=== PATIENT | female | born 1950 | race Caucasian/White ===

== ENCOUNTER 2019-06-19 09:35 | Emergency (ER) | payer MEDICARE, BC ==
[2019-06-19] MEDS ORDERED: ACETAMINOPHEN 500 MG TABLET PO ONE (10:02)
[2019-06-19] MEDS ORDERED: IPRATROPIUM/ALBUTEROL (0.5MG/3MG) NEB INH ONE (10:06)
[2019-06-19] MEDS ORDERED: IBUPROFEN 600 MG TABLET PO ONE (10:07)
--- NOTE | 2019-06-19 10:12 | Emergency Department Record ---
History of Present Illness - General Chief Complaint: Cough Stated Complaint: LEIGH ANN Time Seen by Provider: 06/19/19 09:49 Source: Patient Mode of Arrival: Ambulatory Limitations: No limitations - History of Present Illness Initial Comments: The patient is here due to a cough and congestion with mild SOB for one day. She felt worse this AM so she decided to come to the ER. The patient denies any CP, AP or back pain and she did not get a flu shot this year. MD Complaint: Cough, Fever, Nasal congestion, Rhinorrhea Onset/Timin -: Days(s) - Related Data Home Medications Medication Instructions Recorded Confirmed Last Taken Estrogen,Con/M-Progest Acet 1 tab PO DAILY 06/19/19 06/19/19 06/19/19 [Prempro 0.3 mg-1.5 mg Tablet] Levothyroxine Sodium [Synthroid] 150 mcg PO DAILY 06/19/19 06/19/19 06/19/19 Paroxetine HCl [Paxil] 10 mg PO DAILY 06/19/19 06/19/19 06/17/19 Rosuvastatin Calcium 20 mg PO DAILY 06/19/19 06/19/19 06/18/19 Tramadol HCl 50 mg PO ASDIR 06/19/19 06/19/19 Unknown Previous Rx's Medication Instructions Recorded Albuterol Sulfate [Proair Hfa] 2 puff IH QID PRN #1 inhaler 06/19/19 Oseltamivir Phosphate [Tamiflu] 75 mg PO BID #10 capsule 06/19/19 Allergies Allergy/AdvReac Type Severity Reaction Status Date / Time codeine Allergy SWELLING Verified 06/19/19 09:44 (GENERAL) Travel/Exposure Screening - Travel/Exposure Within Last 30 Days Have you traveled within the last 30 days?: No - Travel/Exposure Within Last Year Have you traveled outside the [place] in the last year?: No - Additonal Travel/Exposure Details Have you been exposed to anyone with a communicable illness?: No - Travel Symptoms Symptom Screening: None Review of Systems Constitutional: Reports: Chills, Fever, Malaise Eyes: Denies: Eye discharge ENT: Reports: Congestion Respiratory: Reports: Cough, Dyspnea. Denies: Hemoptysis Cardiovascular: Denies: Chest pain Endocrine: Reports: Fatigue Gastrointestinal: Denies: Nausea Genitourinary: Denies: Dysuria Musculoskeletal: Denies: Arthralgia Neurological: Denies: Abnormal gait Past Medical History - SOCIAL HISTORY Smoking Status: Never smoker Alcohol Use: None Drug Use: None - RESPIRATORY Hx Respiratory Disorders: No - CARDIOVASCULAR Hx Cardio Disorders: Yes Comment:: high cholesterol - NEURO Hx Neuro Disorders: No - GI Hx GI Disorders: No - Hx Genitourinary Disorders: No - ENDOCRINE Hx Endocrine Disorders: Yes Hx Thyroid Disease: Yes - MUSCULOSKELETAL Hx Musculoskeletal Disorders: No - PSYCH Hx Psych Problems: No - HEMATOLOGY/ONCOLOGY Hx Hematology/Oncology Disorders: No Family Medical History Any Significant Family History?: Yes Hx Alcohol Use: Brother/Sister Hx Cancer: Father, Brother/Sister, Grandparents Hx Heart Disease: Brother/Sister Physical Exam - General General Appearance: Alert, Oriented x3, Cooperative, No acute distress - Head Head exam: Atraumatic, Normocephalic, Normal inspection - Eye Eye exam: Normal appearance, PERRL - ENT Throat exam: Normal inspection. negative: Tonsillar erythema, Tonsillar exudate - Neck Neck exam: Normal inspection, Full ROM. negative: Tenderness - Respiratory Respiratory exam: Normal lung sounds bilaterally (upper lobes.), Decreased breath sounds (at the bases.). negative: Respiratory distress - Cardiovascular Cardiovascular Exam: Regular rate, Normal rhythm, Normal heart sounds - GI/Abdominal GI/Abdominal exam: Soft, Normal bowel sounds. negative: Tenderness - Extremities Extremities exam: Normal inspection, Full ROM, Normal capillary refill. negative: Tenderness - Neurological Neurological exam: Alert, Normal gait. negative: Abnormal gait, Motor sensory deficit - Psychiatric Psychiatric exam: negative: Anxious - Skin Skin exam: negative: Rash Course Vital Signs 06/19/19 09:54 Temperature 102.9 F H Pulse Rate 117 H Respiratory 20 Rate Blood Pressure 184/82 Pulse Ox 90 L - Reevaluation(s) Reevaluation #1: The patient is feeling much better at this time. Her temp is 99.5 at this time and she denies any SOB or LEIGH ANN. On recheck her RA biox is 93-94% with clear lungs. I did discuss the fact that her Influenza test was neg but I strongly feel it is a false neg due to the fact she has classic symptoms of the disease. Due to that I will place her on Tamiflu and will instruct her to return for any worsening symptoms. 06/19/19 11:57 Medical Decision Making - Data Complexity MDM Data: Labs Ordered and/or Reviewed, X-Ray Ordered and/or Reviewed - Lab Data Result diagrams: 06/19/19 10:00 06/19/19 10:00 - Radiology Data Radiology results: Report reviewed (CXR: Neg for any acute changes.) Disposition Disposition: Discharge Clinical Impression: Influenza Disposition: Home, Self-Care Condition: (2) Stable Instructions: Influenza (ED) Additional Instructions: Please alternate Tylenol with Motrin for fever and drink plenty of fluids. Please use the inhaller as directed and please see your family doctor in 2-3 days for recheck. Return to the ER for any worsening cough, high fever, or any trouble breathing or shortness of breath. Prescriptions: Albuterol Sulfate [Proair Hfa] 2 puff IH QID PRN #1 inhaler PRN Reason: Cough And Difficulty Breathing Oseltamivir Phosphate [Tamiflu] 75 mg PO BID #10 capsule Forms: Patient Portal Access Time of Disposition: 12:01 Quality - Quality Measures Quality Measures: N/A - Blood Pressure Screening View Details: Yes Does Patient Have Any of the Following: No Blood Pressure Classification: Normal BP Reading Systolic Measurement: 118 Diastolic Measurement: 67 Screening for High Blood Pressure: < Normal BP, F/U Not Required > [G8783]
[2019-06-19 10:18] LABS: ABSOLUTE NEUTROPHIL COUNT 6.71; HEMATOCRIT 35.7 % (35.0-47.0); HEMOGLOBIN 11.3 gm/dl (11.6-16.0); MEAN CELL VOLUME 96.5 fl (81-97); MEAN CORPUSCULAR HEMOGLOBIN 30.5 pg (27-33); MEAN CORPUSCULAR HGB CONC 31.7 g/dl (32-36); MEAN PLATELET VOLUME 10.7 fl (7.4-10.4); PLATELET COUNT 296 K/uL (130-400); RED CELL DISTRIBUTION WIDTH 14.2 % (11.5-14.5); WHITE BLOOD COUNT W/O DIFF 8.3 K/uL (4.2-12.2)
[2019-06-19 10:34] LABS: INFLUENZA A NEGATIVE (NEGATIVE); INFLUENZA B NEGATIVE (NEGATIVE)
--- NOTE | 2019-06-19 10:35 | RADIOLOGY REPORT ---
EXAMINATION: Two View Chest Radiographs EXAM DATE: 06/19/2019 10:28 AM TECHNIQUE: Frontal and lateral views INDICATION: cough COMPARISON: None ENCOUNTER: Not applicable FINDINGS: Central peribronchial thickening bilaterally, without discrete consolidation or evidence for pleural effusion. Normal heart size. Vessel calcification. Multilevel thoracic endplate degenerative change. IMPRESSION: Central peribronchial thickening; correlate for bronchitis. Dictated by: Brenden Hoffmann MD on 06/19/2019 10:33 AM. .
[2019-06-19 10:46] LABS: BLOOD UREA NITROGEN 10 mg/dL (8-23); CREATININE 0.7 mg/dL (0.5-0.9); EST GLOMERULAR FILTRATION RATE > 60 mL/min; TOTAL PROTEIN 7.6 g/dL (6.6-8.7)
[2019-06-19 10:51] LABS: ALB/GLOB RATIO 1.4 (1.1-1.8); ALBUMIN 4.4 g/dL (4.0-5.0); ALKALINE PHOSPHATASE 54 U/L (35-104); ALT/SGPT 16 U/L (<33); AST/SGOT 15 U/L (10.0-35.0); C-REACTIVE PROTEIN 4.89 mg/dL (<0.5)
[2019-06-19 10:52] LABS: GLUCOSE,RANDOM 117 mg/dL (74-109)
[2019-06-19] MEDS ORDERED: 0.9 % SODIUM CHLORIDE 1,000 ML BAG IV ONE (10:58)
[2019-06-19] MEDS ORDERED: ALBUTEROL SULFATE (0.083%) 2.5 MG/3 ML NEB INH ONE (11:10)
== END 2019-06-19 12:18 | disposition home or self-care (01) ==
LOC: ER 09:35
DX: J10.1 Influenza due to other identified influenza virus with other respiratory manifestations (principal); R06.02 Shortness of breath
CPT/HCPCS: 71046; 80053; 84145; 85027; 86140; 87400; 94640; 99284; J7030; J7613